=== PATIENT | male | born 1965 | race Caucasian/White ===

== ENCOUNTER 2020-07-14 13:02 | Emergency (ER) | payer OTHER ==
[~2020-07-14] VITALS: Ht 188 cm; Wt 104.3 kg
[2020-07-14 13:35] LABS: BASOPHILS ABSOLUTE AUTO 0.03 K/mm3 (0.00-0.23); BASOPHILS PERCENT AUTO 0 % (0-2); EOSINOPHILS ABSOLUTE AUTO 0.12 K/mm3 (0.00-0.68); EOSINOPHILS PERCENT AUTO 1 % (0-6); Hematocrit 44.8 % (37.0-53.0); Hemoglobin 14.8 g/dL (13.5-17.5); IMMATURE GRAN ABSOLUTE AUTO 0.03 K/mm3 (0.00-0.10); IMMATURE GRAN PERCENT AUTO 0 % (0-1); LYMPHOCYTES ABSOLUTE AUTO 2.18 K/mm3 (0.84-5.20); LYMPHOCYTES PERCENT AUTO 24 % (21-46); MONOCYTES ABSOLUTE AUTO 0.93 K/mm3 (0.16-1.47); MONOCYTES PERCENT AUTO 10 % (4-13); Mean Corpuscular Volume 97 fL (80-100); Mean Platelet Volume 10.5 fL (9.1-12.4); NEUTROPHILS ABSOLUTE AUTO 5.95 K/mm3 (1.96-9.15); NEUTROPHILS PERCENT AUTO 64 % (41-73); Platelet Count 157 K/mm3 (150-400); RDW Coefficient Variation 12.4 % (11.7-14.2); RDW Standard Deviation 44.1 fL (35.1-46.3); Red Blood Cell Count 4.62 M/mm3 (4.30-5.90); White Blood Cell Count 9.24 K/mm3 (4.00-11.30)
[2020-07-14 13:55] LABS: Alanine Aminotransfer (ALT/SGP 20 U/L (12-78); Albumin, Blood 3.9 g/dL (3.4-5.0); Albumin/Globulin Ratio 1.1 (0.8-1.8); Alk Phos 94 U/L (50-136); Anion Gap 4 mmol/L (6-16); Aspartate Aminotrans (AST/SGOT 14 U/L (12-37); Bilirubin, Total 0.6 mg/dL (0.1-1.0); Blood Urea Nitrogen 20 mg/dL (8-24); Bun/Creatinine Ratio 18.7 (12.0-20.0); CO2, Blood 32 mmol/L (21-32); Calcium, Blood 9.1 mg/dL (8.5-10.1); Chloride, Blood 107 mmol/L (98-108); Creatinine, Blood 1.07 mg/dL (0.60-1.20); Globulin, Blood 3.4 g/dL (2.2-4.0); Glomerular Filtration Rate >60 (60-); Glucose, Blood 83 mg/dL (70-99); Potassium, Blood 4.2 mmol/L (3.5-5.5); Sodium, Blood 143 mmol/L (136-145); Total Protein, Blood 7.3 g/dL (6.4-8.2); Troponin I <0.015 ng/mL (0.000-0.040)
== END 2020-07-14 16:08 | disposition home or self-care (01) ==
LOC: ER 13:02
PROVIDERS: Emergency Medicine
DX: I48.0 Paroxysmal atrial fibrillation (principal); J44.9 Chronic obstructive pulmonary disease, unspecified
CPT/HCPCS: 71045; 80053; 84484; 85025; 93005; 93010; 99285-25

== ENCOUNTER 2021-01-13 19:28 | Emergency (ER) | payer OTHER ==
[~2021-01-13] VITALS: Ht 188 cm; Wt 99.8 kg
[2021-01-13 20:26] LABS: BASOPHILS ABSOLUTE AUTO 0.03 K/mm3 (0.00-0.23); BASOPHILS PERCENT AUTO 0 % (0-2); EOSINOPHILS PERCENT AUTO 1 % (0-6); Hematocrit 40.7 % (37.0-53.0); Hemoglobin 13.6 g/dL (13.5-17.5); IMMATURE GRAN ABSOLUTE AUTO 0.02 K/mm3 (0.00-0.10); IMMATURE GRAN PERCENT AUTO 0 % (0-1); LYMPHOCYTES ABSOLUTE AUTO 2.27 K/mm3 (0.84-5.20); LYMPHOCYTES PERCENT AUTO 30 % (21-46); MONOCYTES ABSOLUTE AUTO 0.73 K/mm3 (0.16-1.47); MONOCYTES PERCENT AUTO 10 % (4-13); Mean Corpuscular HGB 32.2 pg (26.0-34.0); Mean Corpuscular HGB Conc 33.4 g/dL (31.5-36.5); Mean Corpuscular Volume 96 fL (80-100); NEUTROPHILS ABSOLUTE AUTO 4.54 K/mm3 (1.96-9.15); NEUTROPHILS PERCENT AUTO 59 % (41-73); Platelet Count 146 K/mm3 (150-400); RDW Coefficient Variation 13.1 % (11.7-14.2); RDW Standard Deviation 46.2 fL (35.1-46.3); Red Blood Cell Count 4.23 M/mm3 (4.30-5.90); White Blood Cell Count 7.69 K/mm3 (4.00-11.30)
[2021-01-13 20:39] LABS: Alanine Aminotransfer (ALT/SGP 18 U/L (12-78); Albumin, Blood 3.5 g/dL (3.4-5.0); Albumin/Globulin Ratio 1.2 (0.8-1.8); Alk Phos 89 U/L (50-136); Anion Gap 5 mmol/L (6-16); Aspartate Aminotrans (AST/SGOT 12 U/L (12-37); Bilirubin, Total 0.4 mg/dL (0.1-1.0); Blood Urea Nitrogen 11 mg/dL (8-24); Bun/Creatinine Ratio 12.5 (12.0-20.0); CO2, Blood 28 mmol/L (21-32); Calcium, Blood 8.6 mg/dL (8.5-10.1); Chloride, Blood 108 mmol/L (98-108); Creatinine, Blood 0.88 mg/dL (0.60-1.20); Glomerular Filtration Rate >60 (60-); Glucose, Blood 84 mg/dL (70-99); Potassium, Blood 3.6 mmol/L (3.5-5.5); Sodium, Blood 141 mmol/L (136-145); Total Protein, Blood 6.5 g/dL (6.4-8.2); Troponin I <0.015 ng/mL (0.000-0.040)
[2021-01-13] MEDS ORDERED: METO100ER PO (22:45)
[2021-01-13] MEDS ORDERED: ATOR40TA PO (22:47)
[2021-01-13] MEDS ORDERED: FURO40 PO (22:47)
[2021-01-13] MEDS ORDERED: XARELTO10 M1 PO (22:47)
[2021-01-13] MEDS ORDERED: Isosorbide Mono30 MG PO (22:48)
[2021-01-13] MEDS ORDERED: LOSA50 PO (22:48)
[2021-01-13] MEDS ORDERED: Percocet 10-321 EACH PO (22:49)
[2021-01-13] MEDS ORDERED: TRAZ100 PO (22:50)
[2021-01-13] MEDS ORDERED: SERT100 PO (22:50)
[2021-01-13] MEDS ORDERED: PANT20 PO (22:51)
[2021-03-05] MEDS ORDERED: ALBU90OI INH (10:11)
[2021-03-05] MEDS ORDERED: ISOSORBIDE MONO60 MG PO (10:12)
[2021-03-05] MEDS ORDERED: ATOR20 PO (10:12)
[2021-03-05] MEDS ORDERED: Nitroglycerin1 EAC3 TOP (10:13)
[2021-03-05] MEDS ORDERED: XOPENEX0.63 MG/3 INH (10:13)
[2021-03-05] MEDS ORDERED: MIRT15 PO (10:13)
[2021-03-05] MEDS ORDERED: NITR.4SL SL (10:13)
[2021-03-05] MEDS ORDERED: Nicoderm Cq1 EAC1 TOP (10:13)
[2021-03-05] MEDS ORDERED: OXYC5 PO (10:14)
[2021-03-05] MEDS ORDERED: XARELTO20 MG PO (10:14)
[2021-03-05] MEDS ORDERED: POTA10T PO (10:14)
[2021-03-05] MEDS ORDERED: RANOLAZINE ER500 M1 PO (10:14)
[2021-03-05] MEDS ORDERED: SERT100 PO (10:14)
[2021-03-05] MEDS ORDERED: STIOLTO RESPIMAT4 G1 INH (10:15)
== END 2021-01-13 23:45 | disposition home or self-care (01) ==
LOC: ER 19:28
PROVIDERS: Emergency Medicine
DX: I48.0 Paroxysmal atrial fibrillation (principal); Z79.01 Long term (current) use of anticoagulants; Z79.899 Other long term (current) drug therapy
CPT/HCPCS: 71045; 80053; 84484; 85025; 93005; 93010; 99285-25; J7030

== ENCOUNTER 2021-03-13 09:38 | Day surgery (SDC) | payer OTHER ==
[~2021-03-13] VITALS: Ht 188 cm; Wt 99.4 kg
[~2021-03-13 09:38] MED LIST: ALBU90OI INH; ATOR20 PO; ATOR40TA PO; FURO40 PO; ISOSORBIDE MONO60 MG PO; Isosorbide Mono30 MG PO; LOSA50 PO; METO100ER PO; MIRT15 PO; NITR.4SL SL; Nicoderm Cq1 EAC1 TOP; Nitroglycerin1 EAC3 TOP; OXYC5 PO; PANT20 PO; POTA10T PO; Percocet 10-321 EACH PO; RANOLAZINE ER500 M1 PO; SERT100 PO; STIOLTO RESPIMAT4 G1 INH; TRAZ100 PO; XARELTO10 M1 PO; XARELTO20 MG PO; XOPENEX0.63 MG/3 INH
[2021-03-13] MEDS ORDERED: TRAZ100 PO (10:18)
[2021-03-13] MEDS ORDERED: Ondansetron Odt8 MG MM (10:19)
== END 2021-03-13 12:50 | disposition home or self-care (01) ==
LOC: ORSCSDS 09:38
PROVIDERS: Internal Medicine Gastroenterology
PROC: 0DBK8ZX Excision of Ascending Colon, Via Natural or Artificial Opening Endoscopic, Diagnostic (ICD-10-PCS; principal; 2021-03-13 11:00)
PROC: 0DBE8ZX Excision of Large Intestine, Via Natural or Artificial Opening Endoscopic, Diagnostic (ICD-10-PCS; principal; 2021-03-13 11:00)
PROC: 0DB78ZX Excision of Stomach, Pylorus, Via Natural or Artificial Opening Endoscopic, Diagnostic (ICD-10-PCS; principal; 2021-03-13 11:00)
PROC: 0DB98ZX Excision of Duodenum, Via Natural or Artificial Opening Endoscopic, Diagnostic (ICD-10-PCS; principal; 2021-03-13 11:00)
PROC: 0DBL8ZX Excision of Transverse Colon, Via Natural or Artificial Opening Endoscopic, Diagnostic (ICD-10-PCS; principal; 2021-03-13 11:00)
PROC: 0DBM8ZX Excision of Descending Colon, Via Natural or Artificial Opening Endoscopic, Diagnostic (ICD-10-PCS; principal; 2021-03-13 11:00)
DX: R19.7 Diarrhea, unspecified (principal); R63.4 Abnormal weight loss; D12.3 Benign neoplasm of transverse colon; D12.2 Benign neoplasm of ascending colon; D12.4 Benign neoplasm of descending colon; I10 Essential (primary) hypertension; I48.91 Unspecified atrial fibrillation; I25.10 Atherosclerotic heart disease of native coronary artery without angina pectoris; Z79.899 Other long term (current) drug therapy; F17.210 Nicotine dependence, cigarettes, uncomplicated; J44.9 Chronic obstructive pulmonary disease, unspecified
CPT/HCPCS: 88305; 88342; J2704; J7120

== ENCOUNTER 2021-06-03 14:22 | Emergency (ER) | payer OTHER ==
[~2021-06-03] VITALS: Ht 188 cm; Wt 90.7 kg
[~2021-06-03 14:22] MED LIST changes: +Ondansetron Odt8 MG MM
[2021-06-03 15:12] LABS: BASOPHILS ABSOLUTE AUTO 0.02 K/mm3 (0.00-0.23); BASOPHILS PERCENT AUTO 0 % (0-2); EOSINOPHILS ABSOLUTE AUTO 0.07 K/mm3 (0.00-0.68); EOSINOPHILS PERCENT AUTO 1 % (0-6); Hemoglobin 14.2 g/dL (13.5-17.5); IMMATURE GRAN ABSOLUTE AUTO 0.02 K/mm3 (0.00-0.10); IMMATURE GRAN PERCENT AUTO 0 % (0-1); LYMPHOCYTES PERCENT AUTO 20 % (21-46); MONOCYTES PERCENT AUTO 9 % (4-13); Mean Corpuscular HGB 32.9 pg (26.0-34.0); Mean Corpuscular Volume 100 fL (80-100); NEUTROPHILS ABSOLUTE AUTO 6.85 K/mm3 (1.96-9.15); NEUTROPHILS PERCENT AUTO 70 % (41-73); Platelet Count 174 K/mm3 (150-400); RDW Coefficient Variation 14.5 % (11.7-14.2); Red Blood Cell Count 4.32 M/mm3 (4.30-5.90); White Blood Cell Count 9.86 K/mm3 (4.00-11.30)
[2021-06-03 15:28] LABS: International Normalized Ratio 1.22; Prothrombin Time Results 12.6 Sec (9.7-11.5)
[2021-06-03 15:34] LABS: Alanine Aminotransfer (ALT/SGP 20 U/L (12-78); Albumin, Blood 3.4 g/dL (3.4-5.0); Alk Phos 75 U/L (50-136); Anion Gap 2 mmol/L (6-16); Aspartate Aminotrans (AST/SGOT 9 U/L (12-37); Bilirubin, Total 0.5 mg/dL (0.1-1.0); Blood Urea Nitrogen 16 mg/dL (8-24); Bun/Creatinine Ratio 21.1 (12.0-20.0); CO2, Blood 30 mmol/L (21-32); Calcium, Blood 8.7 mg/dL (8.5-10.1); Chloride, Blood 109 mmol/L (98-108); Creatinine, Blood 0.76 mg/dL (0.60-1.20); Globulin, Blood 3.5 g/dL (2.2-4.0); Glomerular Filtration Rate >60 (60-); Glucose, Blood 83 mg/dL (70-99); Potassium, Blood 3.7 mmol/L (3.5-5.5); Sodium, Blood 141 mmol/L (136-145); Total Protein, Blood 6.9 g/dL (6.4-8.2); Troponin I <0.015 ng/mL (0.000-0.040)
[2021-06-03] MEDS ORDERED: REXULTI1 MG PO (15:45)
[2021-06-03] MEDS ORDERED: METOPROLOL TAR PO (15:46)
[2021-06-03] MEDS ORDERED: RANOLAZINE PO (15:48)
[2021-06-03] MEDS ORDERED: ONDA4ODT MM (15:50)
== END 2021-06-03 16:01 | disposition home or self-care (01) ==
LOC: ER 14:22
PROVIDERS: Physician Assistant
DX: R07.89 Other chest pain (principal); I48.91 Unspecified atrial fibrillation; J44.9 Chronic obstructive pulmonary disease, unspecified; Z88.8 Allergy status to other drugs, medicaments and biological substances; Z88.2 Allergy status to sulfonamides; Z88.5 Allergy status to narcotic agent; Z79.899 Other long term (current) drug therapy; Z99.81 Dependence on supplemental oxygen
CPT/HCPCS: 36415; 71045; 80053; 84484; 85025; 85610; 93005; 93010; 99285-25

== ENCOUNTER → 2022-07-23 | Outpatient (CLI) | payer OTHER ==
[~2022-07-23] MED LIST changes: +METOPROLOL TAR PO; +ONDA4ODT MM; +RANOLAZINE PO; +REXULTI1 MG PO
== END ==
LOC: LAB SHORT 14:15 → LAB 14:15
DX: J18.9 Pneumonia, unspecified organism (principal)
CPT/HCPCS: 87070; 87077; 87185; 87205

== ENCOUNTER 2023-07-28 19:43 | Observation (INO) | payer OTHER ==
[~2023-07-28] VITALS: Ht 188 cm; Wt 92.6 kg
[~2023-07-28 19:43] MED LIST changes: +TOPI50 PO
[2023-07-28 20:15] LABS: BASOPHILS ABSOLUTE AUTO 0.03 K/mm3 (0.00-0.23); BASOPHILS PERCENT AUTO 0 % (0-2); EOSINOPHILS ABSOLUTE AUTO 0.13 K/mm3 (0.00-0.68); EOSINOPHILS PERCENT AUTO 2 % (0-6); Hematocrit 42.8 % (37.0-53.0); Hemoglobin 14.4 g/dL (13.5-17.5); IMMATURE GRAN ABSOLUTE AUTO 0.02 K/mm3 (0.00-0.10); IMMATURE GRAN PERCENT AUTO 0 % (0-1); LYMPHOCYTES ABSOLUTE AUTO 2.74 K/mm3 (0.84-5.20); LYMPHOCYTES PERCENT AUTO 34 % (21-46); MONOCYTES PERCENT AUTO 9 % (4-13); Mean Corpuscular HGB Conc 33.6 g/dL (31.5-36.5); Mean Corpuscular Volume 98 fL (80-100); Mean Platelet Volume 10.5 fL (9.1-12.4); NEUTROPHILS ABSOLUTE AUTO 4.43 K/mm3 (1.96-9.15); NEUTROPHILS PERCENT AUTO 55 % (41-73); Platelet Count 155 K/mm3 (150-400); RDW Coefficient Variation 12.8 % (11.7-14.2); RDW Standard Deviation 45.8 fL (35.1-46.3); Red Blood Cell Count 4.36 M/mm3 (4.30-5.90); White Blood Cell Count 8.05 K/mm3 (4.00-11.30)
[2023-07-28] MEDS ORDERED: BREZTRI AEROS10.7 GM INH (21:44)
[2023-07-28 23:26] LABS: Albumin, Blood 3.3 g/dL (3.4-5.0); Albumin/Globulin Ratio 1.1 (0.8-1.8); Bilirubin, Total 0.2 mg/dL (0.1-1.0); Bun/Creatinine Ratio 19.3 (12.0-20.0); Calcium, Blood 8.6 mg/dL (8.5-10.1); Creatinine, Blood 0.83 mg/dL (0.60-1.20); Globulin, Blood 3.1 g/dL (2.2-4.0); Potassium, Blood 3.6 mmol/L (3.5-5.5); Total Protein, Blood 6.4 g/dL (6.4-8.2)
[2023-07-29 01:16] LABS: BASOPHILS ABSOLUTE AUTO 0.02 K/mm3 (0.00-0.23); BASOPHILS PERCENT AUTO 0 % (0-2); EOSINOPHILS ABSOLUTE AUTO 0.12 K/mm3 (0.00-0.68); EOSINOPHILS PERCENT AUTO 2 % (0-6); Hematocrit 35.5 % (37.0-53.0); Hemoglobin 11.7 g/dL (13.5-17.5); IMMATURE GRAN ABSOLUTE AUTO 0.01 K/mm3 (0.00-0.10); IMMATURE GRAN PERCENT AUTO 0 % (0-1); LYMPHOCYTES ABSOLUTE AUTO 2.31 K/mm3 (0.84-5.20); LYMPHOCYTES PERCENT AUTO 39 % (21-46); MONOCYTES ABSOLUTE AUTO 0.58 K/mm3 (0.16-1.47); MONOCYTES PERCENT AUTO 10 % (4-13); Mean Corpuscular HGB 32.4 pg (26.0-34.0); Mean Corpuscular Volume 98 fL (80-100); Mean Platelet Volume 10.4 fL (9.1-12.4); NEUTROPHILS ABSOLUTE AUTO 2.96 K/mm3 (1.96-9.15); NEUTROPHILS PERCENT AUTO 49 % (41-73); Platelet Count 136 K/mm3 (150-400); RDW Coefficient Variation 12.8 % (11.7-14.2); RDW Standard Deviation 46.2 fL (35.1-46.3); Red Blood Cell Count 3.61 M/mm3 (4.30-5.90)
[2023-07-29 01:41] LABS: Albumin, Blood 3.2 g/dL (3.4-5.0); Albumin/Globulin Ratio 1.1 (0.8-1.8); Bilirubin, Total 0.2 mg/dL (0.1-1.0); Calcium, Blood 8.6 mg/dL (8.5-10.1); Creatinine, Blood 0.81 mg/dL (0.60-1.20); Globulin, Blood 2.9 g/dL (2.2-4.0); Total Protein, Blood 6.1 g/dL (6.4-8.2)
[2023-07-29 02:01] VITALS: BP 141/87
--- NOTE | 2023-07-29 02:33 | NUR ---
ADMIT NOTE REPORT FROM SUBHA ELIZONDO RN AT 0059. PT BROUGHT TO ROOM AT 0140. PT INDEPENDENT AND ABLE TO MOVE FROM GURNEY TO BED. PT HAS COCHLEAR IMPLANT ON THE RIGHT SIDE OF HIS HEAD. PT STS THAT HE HAS CHRONIC NECK PAIN FROM A FX AND SURGICAL INTERVENTION IN 2010. PT HAS HX OF AFIB, COPD, SLEEP APNEA, CARDIAC STENTS, AND PARALYZED DIAPHRAGM.
--- NOTE | 2023-07-29 04:23 | NUR ---
SHIFT SUMMARY PT COOPERATIVE AND PLEASANT. HE DOES NOT WANT TO BE A "BOTHER". PT HAS POTASSIUM RUNNING. IT WAS TURNED DOWN DUE TO BURNING, BUT PT BEGAN TO COMPLAIN AGAIN OF BURNING, SO NOW POTASSIUM RUNNING CONCURRENTLY WITH 1/2 NS AT 75/HR. PT HAS CALL LIGHT WITHIN HIS REACH AND HIS BED IS IN LOW POSITION.
[2023-07-29 07:15] VITALS: BP 137/74
--- NOTE | 2023-07-29 14:41 | NUR ---
Patient reports mild chest pain this morning. Telemetry in place, Adelfo at 58. MD ordered DC home with ziopatch, no new Rx. Reviewed discharge education, patient & verbalized understanding. Pt left at 1300.
== END 2023-07-29 13:05 | disposition home or self-care (01) ==
LOC: ER 19:43 → MEDS 19:44 → ENPENDDIS 07-29 10:21 → MEDS 07-29 13:05
PROVIDERS: Student in an Organized Health Care Education/Training Program; ADMIT Internal Medicine
DX: I48.91 Unspecified atrial fibrillation (principal); R07.89 Other chest pain; E87.0 Hyperosmolality and hypernatremia; E87.6 Hypokalemia; I10 Essential (primary) hypertension; K21.9 Gastro-esophageal reflux disease without esophagitis; Z79.01 Long term (current) use of anticoagulants; E78.5 Hyperlipidemia, unspecified; I25.10 Atherosclerotic heart disease of native coronary artery without angina pectoris; Z95.5 Presence of coronary angioplasty implant and graft; I25.2 Old myocardial infarction
CPT/HCPCS: 36415; 71045; 80053; 83735; 83880; 84484; 85025; 93005; 93010; 93246; 94640; 94664; 94762; 96374; 99285-25; A9270; C9113; G0008; G0378; J3480; J7050; Q2036

== ENCOUNTER 2024-02-19 09:02 | Day surgery (SDC) | payer OTHER ==
[~2024-02-19] VITALS: Ht 188 cm; Wt 94.2 kg
[~2024-02-19 09:02] MED LIST changes: +BREZTRI AEROS10.7 GM INH; +Lactated Ringer's 1,000 ML IV SCH
[2024-02-19 09:55] VITALS: BP 127/65
--- NOTE | 2024-02-19 10:17 | NUR ---
Ambulatory in Day Surgery. History, Chart, Medications and Allergies reviewed before start of procedure. Lungs clear T/O to Auscultation. Patient confirms NPO status and agrees with scheduled surgery. Patient States Post-Procedure ride home has been arranged.
--- NOTE | 2024-02-19 10:23 | NUR ---
02/19/24 1023 Lamine Dubon History, Chart, Medications and Allergies reviewed before start of procedure.MONITOR INTACT WITH CONTINUOUS PULSE OXIMETRY, CONTINUOUS END TITAL CO2, AND INTERMITTENT BLOOD PRESSURE.3-LEAD EKG REVIEWED WITH PHYSICIAN PRIOR TO START OF PROCEDURE.O2 VIA N/C INTACT THROUGHOUT SEDATION/PROC.EDURE.See Anesthesia record
[2024-02-19] MEDS ORDERED: Lidocaine HCl 4% 5 ML SDA ONE (10:24)
[2024-02-19] MEDS ORDERED: Ipratropium/Albuterol SulF 2.5-0.5MG/3 ML Amp ONE (10:38)
[2024-02-19] MEDS ORDERED: propofoL 40 ML IV ONE (10:40)
[2024-02-19] MEDS ORDERED: Ipratropium/Albuterol SulF 2.5-0.5MG/3 ML Amp INH SCH (10:40)
[2024-02-19] MEDS ORDERED: Glycopyrrolate 0.2 MG/ML 1MLVIAL ONE (10:52)
[2024-02-19] MEDS ORDERED: propofoL 20 ML IV ONE ×2 (11:19→11:49)
[2024-02-19 12:07] VITALS: BP 121/59
[2024-02-19 12:23] VITALS: BP 129/62
--- NOTE | 2024-02-19 12:35 | NUR ---
Patient up to Ambulate independently. Gait steady. VSS. ON RA. HOB UP. APPLIED WARM BLANKETS. UNDERSTANDING OF FOLLOW UP AND DISCHARGE INSTRUCTIONS. OFFERED PO FLUIDS, TOLERATED WELL. BELONGINGS WITH PATIENT. Patient States Post-Procedure ride home has been arranged.
== END 2024-02-19 12:30 | disposition home or self-care (01) ==
LOC: ORSCMMR 09:02 → ORD 10:30 → ORSCMMR 12:30
PROVIDERS: Internal Medicine Gastroenterology
PROC: 0DBP8ZX Excision of Rectum, Via Natural or Artificial Opening Endoscopic, Diagnostic (ICD-10-PCS; principal; 2024-02-19 10:30)
PROC: 0DJ08ZZ Inspection of Upper Intestinal Tract, Via Natural or Artificial Opening Endoscopic (ICD-10-PCS; principal; 2024-02-19 10:30)
PROC: 0DBL8ZX Excision of Transverse Colon, Via Natural or Artificial Opening Endoscopic, Diagnostic (ICD-10-PCS; principal; 2024-02-19 10:30)
DX: R63.4 Abnormal weight loss (principal); D12.3 Benign neoplasm of transverse colon; K62.1 Rectal polyp; Z86.010 Personal history of colon polyps; K57.30 Diverticulosis of large intestine without perforation or abscess without bleeding; K64.4 Residual hemorrhoidal skin tags; K64.8 Other hemorrhoids; R10.31 Right lower quadrant pain; R10.12 Left upper quadrant pain; R14.0 Abdominal distension (gaseous); J44.9 Chronic obstructive pulmonary disease, unspecified; E78.5 Hyperlipidemia, unspecified; I10 Essential (primary) hypertension; K21.9 Gastro-esophageal reflux disease without esophagitis; I25.119 Atherosclerotic heart disease of native coronary artery with unspecified angina pectoris; I48.0 Paroxysmal atrial fibrillation; F17.210 Nicotine dependence, cigarettes, uncomplicated; G47.33 Obstructive sleep apnea (adult) (pediatric); Z79.01 Long term (current) use of anticoagulants; Z79.899 Other long term (current) drug therapy
CPT/HCPCS: 88305; J2001; J2704; J7120